=== PATIENT | female | born 1965 | race Two or more races ===

== ENCOUNTER 2017-03-20 11:22 | Inpatient (IN) | payer MEDICAID ==
[~2017-03-20] VITALS: Ht 162.6 cm; Wt 72.6 kg
[2017-03-20 12:02] LABS: BASOPHIL % 0.3 % (0-2); PLATELET COUNT 276 x10^3mcL (130-400); RED CELL DISTRIBUTION WIDTH 12.5 % (11.5-14.5)
[2017-03-20 12:03] LABS: CALCIUM 9.2 mg/dL (8.5-10.1); CARBON DIOXIDE 28.5 mmol/L (21-32); CHLORIDE SERUM 104 mmol/L (98-107); CREATININE SERUM 0.6 mg/dL (0.6-1.0); GFR1 > 60 mL/min; GLUCOSE SERUM 105 mg/dL (74-106); POTASSIUM SERUM 3.3 mmol/L (3.5-5.1); SODIUM SERUM 140 mmol/L (136-145)
[2017-03-20] MEDS ORDERED: QVAR0.08 MG/Ac (13:53)
[2017-03-20 14:01] VITALS: BP 137/72
[2017-03-20 14:04] VITALS: Ht 162.6 cm; Wt 72.6 kg
[2017-03-20 14:28] LABS: AMYLASE 50 U/L (25-115); LIPASE 159 IU/L (73-393)
[2017-03-20 14:29] LABS: T3 TOTAL 1.1 ng/mL
[2017-03-20 14:32] LABS: MAGNESIUM 2.4 mg/dL (1.8-2.4); PHOSPHOROUS 3.2 mg/dL (2.5-4.9)
[2017-03-20 14:34] LABS: CHOLESTEROL/HDL RATIO 5.7
[2017-03-20 15:16] VITALS: BP 135/98
[2017-03-20 15:22] LABS: FREE T4 0.96 ng/dL (0.76-1.46); FREE THYROXINE INDEX 3.3 ug/dL (1.4-4.5); T4(THYROXINE) 9.3 ug/dL (4.7-13.3)
[2017-03-20 17:48] VITALS: BP 133/68
[2017-03-20 20:55] VITALS: BP 120/79
[2017-03-21 07:32] LABS: UA SPECIFIC GRAVITY <=1.005 (1.005-1.035); microscopic required? YES; urine erythrocyte TRACE (NEGATIVE)
[2017-03-21 07:44] LABS: AMPHETAMINE QUAL UR NONE DETECTED (NEG <=1000)
[2017-03-21 09:28] VITALS: BP 142/73
[2017-03-21] MEDS ORDERED: VENTOLIN H0.09 MG/A1 INH ×3 (15:02→15:37)
[2017-03-21] MEDS ORDERED: LIPI10 PO (15:33)
[2017-03-21] MEDS ORDERED: MAC100 PO (15:34)
[2017-03-21 15:51] VITALS: BP 142/73
[2017-03-21] MEDS ORDERED: LAC PO (16:04)
== END 2017-03-21 17:10 | disposition home or self-care (01) | DRG 463 ==
LOC: ED 11:22 → MU 13:08 → DU 13:08 → MU 03-21 06:44
PROVIDERS: Emergency Medicine; ADMIT Family Medicine
DX: N39.0 Urinary tract infection, site not specified (principal); J45.901 Unspecified asthma with (acute) exacerbation; E87.6 Hypokalemia; M50.30 Other cervical disc degeneration, unspecified cervical region; D18.09 Hemangioma of other sites; E78.5 Hyperlipidemia, unspecified; Z82.49 Family history of ischemic heart disease and other diseases of the circulatory system; Z68.27 Body mass index [BMI] 27.0-27.9, adult
CPT/HCPCS: 83880; 84439; 90658; 94150; J7030; J7613; J7620; J7644; Q0092